=== PATIENT | female | born 1975 | race Caucasian/White ===

== ENCOUNTER 2020-03-31 19:22 | Inpatient (IN) | payer OTHER ==
[~2020-03-31] VITALS: Ht 172.7 cm; Wt 96.0 kg
[2020-03-31] MEDS: LACTATED RINGERS 1,000 ML IV SCH (00:50)
--- NOTE | 2020-03-31 19:42 | NUR ---
Assumed care of patient. C/O ABD pain and N/V/D x 2 weeks, worse today. Will continue to monitor.
[2020-03-31] MEDS ORDERED: ONDANSETRON 2MG/ML, 2ML ONE ×2 (20:11→23:26)
[2020-03-31] MEDS ORDERED: MORPHINE SULFATE 4 MG/ML, 1ML ONE ×3 (20:11→23:26)
--- NOTE | 2020-03-31 20:26 | NUR ---
CT PENDING BETA.
[2020-03-31] MEDS ORDERED: SODIUM CHLORIDE 0.9% 1,000ML IVBOLUS ONE (20:30)
[2020-03-31] MEDS: MORPHINE SULFATE 4 MG/ML, 1ML IVPush PRN ×2 (20:30→22:00)
[2020-03-31] MEDS ORDERED: ONDANSETRON 2MG/ML, 2ML IVPush ONE (20:30)
[2020-03-31 20:34] LABS: BASOPHILS # (AUTO) 0.08 x10^3/uL (0-0.1); BASOPHILS % (AUTO) 1 % (0-1); EOSINOPHILS % (AUTO) 1 % (1-7); LYMPHOCYTES % (AUTO) 21 % (22-44); MD NO; MEAN CORPUSCULAR HEMOGLOBIN 29.3 pg (27.0-34.8); MEAN CORPUSCULAR HGB CONC 33.6 g/dL (32.4-35.8); MEAN PLATELET VOLUME 7.2 fL (7.4-10.4); MONOCYTES % (AUTO) 5 % (2-9); NEUTROPHILS # (AUTO) 10.19 x10^3/uL (1.8-6.8); NEUTROPHILS % (AUTO) 72 % (42-75); PLATELET COUNT 271 x10^3/uL (130-400); RED BLOOD COUNT 4.76 x10^6/uL (3.82-5.3); RED CELL DISTRIBUTION WIDTH 13.3 % (9.6-15.2)
[2020-03-31 20:41] LABS: ALANINE AMINOTRANSFERASE 17 U/L (12-78); ALBUMIN 4.1 g/dL (3.4-5.0); ANION GAP 6 mmol/L (5-15); CALCIUM 8.4 mg/dL (8.5-10.1); CHLORIDE 110 mmol/L (98-107); CREATININE 0.88 mg/dL (0.55-1.02)
[2020-03-31 20:45] LABS: ALKALINE PHOSPHATASE 65 U/L (45-117); BILIRUBIN,TOTAL 0.5 mg/dL (0.2-1.0); TOTAL PROTEIN 7.4 g/dL (6.4-8.2)
[2020-03-31 20:50] LABS: MICROSCOPIC NOT IND
--- NOTE | 2020-03-31 21:15 | NUR ---
Pt to CT
--- NOTE | 2020-03-31 21:27 | NUR ---
Pt back from CT
[2020-03-31] MEDS ORDERED: OMNIPAQUE 350 MG/ML, 100ML BOTTLE ONE (21:32)
[2020-03-31] MEDS ORDERED: METOCLOPRAMIDE 5 MG/ML, 2ML ONE (21:56)
[2020-03-31] MEDS ORDERED: METOCLOPRAMIDE 5 MG/ML, 2ML IVPush ONE (22:00)
[2020-03-31] MEDS ORDERED: SODIUM CHLORIDE 0.9% 1,000 ML IV ONE (22:11)
[2020-03-31] MEDS ORDERED: ONDANSETRON 2MG/ML, 2ML IVPush PRN (22:30)
[2020-03-31] MEDS ORDERED: MELATONIN 5 MG TABLET PO PRN (22:30)
[2020-03-31] MEDS ORDERED: MORPHINE SULFATE 4 MG/ML, 1ML IVPush PRN (22:30)
[2020-03-31] MEDS ORDERED: PROMETHAZINE 25 MG/ML, 1ML IM PRN (22:30)
[2020-03-31] MEDS ORDERED: POLYETHYLENE GLYCOL 17 GM PACKET PO PRN (22:30)
[2020-03-31] MEDS ORDERED: HYDROmorphone 2 MG/ML, 1ML IVPush PRN (22:30)
[2020-03-31] MEDS ORDERED: METOCLOPRAMIDE 5 MG/ML, 2ML IVPush PRN (22:30)
[2020-03-31] MEDS ORDERED: BISACODYL 10 MG SUPP PR PRN (22:30)
--- NOTE | 2020-03-31 23:45 | NUR ---
REPORT GIVEN TO SANCHO SHARIF TO ASSUME CARE UPON TRANSFER TO [facility]
--- NOTE | 2020-03-31 23:46 | NUR ---
PT STATES SHE DOES NOT TAKE ANY MEDICAITONS AT HOME
[2020-04-01 00:03] VITALS: BP 112/74
[2020-04-01] MEDS: ENOXAPARIN 40 MG/0.4 ML SQ SCH ×2 (00:35→22:30)
[2020-04-01] MEDS: MORPHINE SULFATE 4 MG/ML, 1ML IVPush PRN ×6 (01:27→21:04)
[2020-04-01 05:26] LABS: MEAN CORPUSCULAR HEMOGLOBIN 29.4 pg (27.0-34.8); MEAN PLATELET VOLUME 7.2 fL (7.4-10.4); PLATELET COUNT 267 x10^3/uL (130-400); RED BLOOD COUNT 4.89 x10^6/uL (3.82-5.3); RED CELL DISTRIBUTION WIDTH 13.4 % (9.6-15.2)
[2020-04-01 05:28] LABS: ANION GAP 4 mmol/L (5-15); CALCIUM 8.9 mg/dL (8.5-10.1); CHLORIDE 110 mmol/L (98-107); CREATININE 0.74 mg/dL (0.55-1.02)
[2020-04-01 06:15] LABS: BASOPHILS # (AUTO) 0.03 x10^3/uL (0-0.1); BASOPHILS % (AUTO) 0 % (0-1); EOSINOPHILS % (AUTO) 0 % (1-7); LYMPHOCYTES # (AUTO) 0.85 x10^3/uL (1-3.4); LYMPHOCYTES % (AUTO) 4 % (22-44); MD SCAN; MONOCYTES # (AUTO) 0.76 x10^3/uL (0.2-0.8); MONOCYTES % (AUTO) 4 % (2-9); NEUTROPHILS # (AUTO) 18.39 x10^3/uL (1.8-6.8); NEUTROPHILS % (AUTO) 92 % (42-75)
[2020-04-01 06:34] VITALS: BP 162/104
[2020-04-01] MEDS: FAMOTIDINE 20 MG/2 ML IVPush SCH ×2 (08:52→21:04)
[2020-04-01] MEDS: ONDANSETRON 2MG/ML, 2ML IVPush PRN (08:52)
[2020-04-01] MEDS ORDERED: SENNA/DOCUSATE TABLET PO SCH (09:00)
[2020-04-01] MEDS: LACTATED RINGERS 1,000 ML IV SCH (12:34)
[2020-04-01 15:17] VITALS: BP 135/83
[2020-04-01 19:03] VITALS: BP 126/93
[2020-04-01] MEDS ORDERED: LACTATED RINGERS 1,000 ML IV SCH (22:30)
[2020-04-02] MEDS: MORPHINE SULFATE 4 MG/ML, 1ML IVPush PRN ×5 (00:02→19:42)
[2020-04-02 01:47] VITALS: BP 83/75
[2020-04-02] MEDS ORDERED: SODIUM CHLORIDE 0.9% 1,000ML IVBOLUS ONE ×2 (03:00→04:00)
[2020-04-02] MEDS ORDERED: LACTATED RINGERS 1,000 ML IV SCH (03:30)
[2020-04-02 03:41] VITALS: BP 120/83
[2020-04-02 03:41] LABS: ANION GAP 11 mmol/L (5-15); CALCIUM 8.4 mg/dL (8.5-10.1); CHLORIDE 107 mmol/L (98-107); CREATININE 1.65 mg/dL (0.55-1.02)
[2020-04-02 03:50] LABS: MEAN CORPUSCULAR HEMOGLOBIN 29.1 pg (27.0-34.8); MEAN PLATELET VOLUME 7.4 fL (7.4-10.4); PLATELET COUNT 243 x10^3/uL (130-400); RED CELL DISTRIBUTION WIDTH 13.6 % (9.6-15.2)
[2020-04-02] MEDS: PIPERACILLIN/TAZO/PMX 2.25GM 50 ML IV SCH ×2 (04:04→12:51)
[2020-04-02 04:31] LABS: MD YES
[2020-04-02 05:43] LABS: BAND#(MANUAL) 3.54 x10^3/uL; BANDS%(MANUAL) 27 % (0-7); LYMPH#(MANUAL) 2.23 x10^3/uL (1-3.4); LYMPHS% (MANUAL) 17 % (22-44); METAMYELOCYTES# (MANUAL) 0.39 x10^3/uL (0-0); METAMYELOCYTES% (MANUAL) 3 % (0-1); MONOS#(MANUAL) 1.18 x10^3/uL (0.3-2.7); MONOS% (MANUAL) 9 % (2-9); REACTIVE LYMPHS # (MANUAL) 0.13 x10^3/uL (0-0); REACTIVE LYMPHS % (MANUAL) 1 % (0-0); SEG#(MANUAL) 5.63 x10^3/uL (1.8-6.8); SEGS% (MANUAL) 43 % (42-75)
[2020-04-02 05:45] LABS: <PLATELET ESTIMATE> ADEQUATE; <PLT MORPHOLOGY> NORMAL PLT MORPH; <RBC MORPHOLOGY> NORMAL
[2020-04-02 05:46] LABS: PMNS WITH VACUOLES 1+
[2020-04-02 05:47] LABS: TOXIC GRAN 1+
[2020-04-02 07:04] VITALS: BP 114/83
[2020-04-02] MEDS ORDERED: ALBUMIN HUMAN 25% 100 ML IV ONE (09:00)
[2020-04-02] MEDS ORDERED: SODIUM CHLORIDE 0.9%, 500ML IVBOLUS ONE (09:00)
[2020-04-02] MEDS: ONDANSETRON 2MG/ML, 2ML IVPush PRN ×2 (09:18→16:04)
[2020-04-02] MEDS: PANTOPRAZOLE 40 MG IV IVPush SCH ×2 (10:42→22:13)
[2020-04-02] MEDS: D5%-0.9% NACL 1,000 ML IV SCH ×2 (10:43→18:14)
[2020-04-02 14:08] VITALS: BP 119/86
[2020-04-02 14:28] LABS: ANION GAP 8 mmol/L (5-15); CALCIUM 8.2 mg/dL (8.5-10.1); CHLORIDE 112 mmol/L (98-107); CREATININE 0.92 mg/dL (0.55-1.02)
[2020-04-02] MEDS: PIPERACILLIN/TAZO/PMX 3.375GM 50 ML IV SCH (19:47)
[2020-04-02 20:27] VITALS: BP 99/69
[2020-04-02] MEDS: ENOXAPARIN 40 MG/0.4 ML SQ SCH (22:30)
[2020-04-03] MEDS: MORPHINE SULFATE 4 MG/ML, 1ML IVPush PRN ×8 (00:03→23:48)
[2020-04-03 01:17] VITALS: BP 130/82
[2020-04-03] MEDS: D5%-0.9% NACL 1,000 ML IV SCH ×3 (02:51→21:34)
[2020-04-03] MEDS: PIPERACILLIN/TAZO/PMX 3.375GM 50 ML IV SCH ×4 (02:51→21:34)
[2020-04-03 05:44] LABS: ANION GAP 6 mmol/L (5-15); CHLORIDE 110 mmol/L (98-107)
[2020-04-03 05:45] LABS: BASOPHILS # (AUTO) 0.02 x10^3/uL (0-0.1); BASOPHILS % (AUTO) 0 % (0-1); EOSINOPHILS # (AUTO) 0.22 x10^3/uL (0-0.4); EOSINOPHILS % (AUTO) 4 % (1-7); LYMPHOCYTES % (AUTO) 18 % (22-44); MD NO; MEAN CORPUSCULAR HEMOGLOBIN 29.3 pg (27.0-34.8); MEAN CORPUSCULAR HGB CONC 33.7 g/dL (32.4-35.8); MEAN PLATELET VOLUME 7.7 fL (7.4-10.4); MONOCYTES # (AUTO) 0.79 x10^3/uL (0.2-0.8); MONOCYTES % (AUTO) 14 % (2-9); NEUTROPHILS # (AUTO) 3.55 x10^3/uL (1.8-6.8); NEUTROPHILS % (AUTO) 64 % (42-75); PLATELET COUNT 199 x10^3/uL (130-400); RED CELL DISTRIBUTION WIDTH 13.8 % (9.6-15.2)
[2020-04-03 05:47] LABS: CREATININE 0.66 mg/dL (0.55-1.02)
[2020-04-03] MEDS: PANTOPRAZOLE 40 MG IV IVPush SCH ×2 (08:21→21:40)
[2020-04-03 09:10] VITALS: BP 112/79
[2020-04-03] MEDS: ONDANSETRON 2MG/ML, 2ML IVPush PRN ×2 (11:09→17:24)
[2020-04-03 15:00] VITALS: BP 113/70
[2020-04-03 16:37] LABS: MEAN CORPUSCULAR HEMOGLOBIN 29.9 pg (27.0-34.8); MEAN CORPUSCULAR HGB CONC 34.3 g/dL (32.4-35.8); RED BLOOD COUNT 4.43 x10^6/uL (3.82-5.3); RED CELL DISTRIBUTION WIDTH 13.5 % (9.6-15.2)
[2020-04-03 16:38] LABS: BASOPHILS # (AUTO) 0.02 x10^3/uL (0-0.1); BASOPHILS % (AUTO) 0 % (0-1); EOSINOPHILS % (AUTO) 3 % (1-7); LYMPHOCYTES # (AUTO) 1.02 x10^3/uL (1-3.4); LYMPHOCYTES % (AUTO) 14 % (22-44); MD NO; MEAN PLATELET VOLUME 7.6 fL (7.4-10.4); MONOCYTES # (AUTO) 0.67 x10^3/uL (0.2-0.8); MONOCYTES % (AUTO) 9 % (2-9); NEUTROPHILS # (AUTO) 5.42 x10^3/uL (1.8-6.8); NEUTROPHILS % (AUTO) 74 % (42-75); PLATELET COUNT 195 x10^3/uL (130-400)
[2020-04-03] MEDS ORDERED: FENTANYL PF 250 MCG/5ML ONE (18:02)
[2020-04-03] MEDS ORDERED: MIDAZOLAM 1 MG/ML, 2ML ONE (18:02)
[2020-04-03] MEDS ORDERED: LIDOCAINE-MPF 2% ,5ML ONE (18:50)
[2020-04-03] MEDS ORDERED: SUGAMMADEX 200 MG/2 ML IVPush ONE (18:50)
[2020-04-03] MEDS ORDERED: MEPERIDINE/PF 25MG/0.5ML IVPush PRN (19:30)
[2020-04-03] MEDS ORDERED: LABETALOL 5MG/ML, 20ML IV PRN (19:30)
[2020-04-03] MEDS ORDERED: FENTANYL PF 100 MCG/2ML IV PRN (19:30)
[2020-04-03] MEDS ORDERED: morphine SULFATE 10 MG/ML, 1ML IVPush PRN (19:30)
[2020-04-03] MEDS ORDERED: ALBUTEROL SULFATE 2.5 MG/3 ML NPPB PRN (19:30)
[2020-04-03] MEDS ORDERED: hydrALAzine 20 MG/ML, 1ML IV PRN (19:30)
[2020-04-03] MEDS ORDERED: PROMETHAZINE 25 MG/ML, 1ML IVPush PRN (19:30)
[2020-04-03] MEDS ORDERED: LORazepam 2 MG/ML, 1ML IVPush PRN (19:30)
[2020-04-03] MEDS ORDERED: CEFAZOLIN 1,000 MG ONE (19:38)
[2020-04-03] MEDS ORDERED: GLYCOPYRROLATE 0.2MG/1ML, 5ML ONE (19:38)
[2020-04-03] MEDS ORDERED: PROPOFOL 10 MG/ML, 20ML ONE (19:38)
[2020-04-03] MEDS ORDERED: DEXAMETHASONE 4 MG/ML, 1ML ONE (19:38)
[2020-04-03] MEDS ORDERED: NEOSTIGMINE 1 MG/ML, 10ML ONE (19:38)
[2020-04-03] MEDS ORDERED: SUCCINYLCHOLINE 20 MG/ML, 10ML ONE (19:38)
[2020-04-03] MEDS ORDERED: ONDANSETRON 2MG/ML, 2ML ONE (19:38)
[2020-04-03] MEDS ORDERED: ROCURONIUM 10MG/ML,5ML ONE (19:38)
[2020-04-03] MEDS ORDERED: FENTANYL PF 100 MCG/2ML ONE (20:26)
[2020-04-03] MEDS ORDERED: MEPERIDINE/PF 25MG/ML,1ML ONE (20:26)
[2020-04-03] MEDS: ENOXAPARIN 40 MG/0.4 ML SQ SCH (22:30)
[2020-04-03] MEDS: GABAPENTIN 300 MG CAPSULE PO SCH (22:55)
[2020-04-03] MEDS: ACETAMINOPHEN 500 MG TABLET PO SCH (22:55)
[2020-04-04] MEDS: MORPHINE SULFATE 4 MG/ML, 1ML IVPush PRN ×3 (02:55→19:53)
[2020-04-04] MEDS: PIPERACILLIN/TAZO/PMX 3.375GM 50 ML IV SCH ×4 (02:55→19:53)
[2020-04-04] MEDS: D5%-0.9% NACL 1,000 ML IV SCH ×3 (05:40→19:53)
[2020-04-04] MEDS: ENOXAPARIN 40 MG/0.4 ML SQ SCH (05:40)
[2020-04-04] MEDS: ACETAMINOPHEN 500 MG TABLET PO SCH ×4 (05:40→22:36)
[2020-04-04 05:41] VITALS: BP 126/80
[2020-04-04 05:44] LABS: ANION GAP 4 mmol/L (5-15); CALCIUM 7.9 mg/dL (8.5-10.1); CHLORIDE 114 mmol/L (98-107); CREATININE 0.64 mg/dL (0.55-1.02)
[2020-04-04 07:25] VITALS: BP 125/89
[2020-04-04] MEDS: PANTOPRAZOLE 40 MG IV IVPush SCH ×2 (08:39→22:36)
[2020-04-04] MEDS: GABAPENTIN 300 MG CAPSULE PO SCH ×3 (08:40→22:37)
[2020-04-04 13:30] VITALS: BP 116/82
[2020-04-04 19:12] VITALS: BP 130/88
[2020-04-05] MEDS: PIPERACILLIN/TAZO/PMX 3.375GM 50 ML IV SCH ×4 (02:02→21:44)
[2020-04-05 02:24] VITALS: BP 138/90
[2020-04-05] MEDS: ACETAMINOPHEN 500 MG TABLET PO SCH ×4 (05:05→23:03)
[2020-04-05] MEDS: D5%-0.9% NACL 1,000 ML IV SCH ×3 (05:06→21:44)
[2020-04-05 05:20] LABS: BASOPHILS # (AUTO) 0.01 x10^3/uL (0-0.1); BASOPHILS % (AUTO) 0 % (0-1); EOSINOPHILS # (AUTO) 0.37 x10^3/uL (0-0.4); EOSINOPHILS % (AUTO) 5 % (1-7); LYMPHOCYTES # (AUTO) 2.15 x10^3/uL (1-3.4); LYMPHOCYTES % (AUTO) 26 % (22-44); MD NO; MEAN CORPUSCULAR HEMOGLOBIN 29.4 pg (27.0-34.8); MEAN CORPUSCULAR HGB CONC 33.7 g/dL (32.4-35.8); MEAN PLATELET VOLUME 7.2 fL (7.4-10.4); MONOCYTES # (AUTO) 0.73 x10^3/uL (0.2-0.8); MONOCYTES % (AUTO) 9 % (2-9); NEUTROPHILS # (AUTO) 4.97 x10^3/uL (1.8-6.8); NEUTROPHILS % (AUTO) 60 % (42-75); PLATELET COUNT 221 x10^3/uL (130-400); RED BLOOD COUNT 4.09 x10^6/uL (3.82-5.3); RED CELL DISTRIBUTION WIDTH 13.6 % (9.6-15.2)
[2020-04-05 05:30] LABS: ANION GAP 6 mmol/L (5-15); CALCIUM 7.6 mg/dL (8.5-10.1); CHLORIDE 113 mmol/L (98-107); CREATININE 0.48 mg/dL (0.55-1.02)
[2020-04-05] MEDS: ENOXAPARIN 40 MG/0.4 ML SQ SCH (06:32)
[2020-04-05] MEDS: PANTOPRAZOLE 40 MG IV IVPush SCH ×2 (08:17→21:44)
[2020-04-05] MEDS: GABAPENTIN 300 MG CAPSULE PO SCH ×3 (08:17→21:43)
[2020-04-05 08:30] VITALS: BP 134/95
[2020-04-05 14:10] VITALS: BP 130/89
[2020-04-05 19:33] VITALS: BP 134/72
[2020-04-06 02:41] VITALS: BP 92/58
[2020-04-06] MEDS: PIPERACILLIN/TAZO/PMX 3.375GM 50 ML IV SCH ×4 (04:10→23:08)
[2020-04-06 05:01] LABS: BASOPHILS # (AUTO) 0.03 x10^3/uL (0-0.1); BASOPHILS % (AUTO) 1 % (0-1); EOSINOPHILS # (AUTO) 0.33 x10^3/uL (0-0.4); EOSINOPHILS % (AUTO) 4 % (1-7); LYMPHOCYTES # (AUTO) 2.22 x10^3/uL (1-3.4); LYMPHOCYTES % (AUTO) 29 % (22-44); MD NO; MEAN CORPUSCULAR HEMOGLOBIN 29.3 pg (27.0-34.8); MEAN CORPUSCULAR HGB CONC 33.7 g/dL (32.4-35.8); MEAN PLATELET VOLUME 6.9 fL (7.4-10.4); MONOCYTES # (AUTO) 0.87 x10^3/uL (0.2-0.8); MONOCYTES % (AUTO) 12 % (2-9); NEUTROPHILS # (AUTO) 4.08 x10^3/uL (1.8-6.8); NEUTROPHILS % (AUTO) 54 % (42-75); PLATELET COUNT 207 x10^3/uL (130-400); RED BLOOD COUNT 3.83 x10^6/uL (3.82-5.3); RED CELL DISTRIBUTION WIDTH 13.1 % (9.6-15.2)
[2020-04-06 05:09] LABS: ANION GAP 7 mmol/L (5-15); CALCIUM 7.6 mg/dL (8.5-10.1); CHLORIDE 113 mmol/L (98-107); CREATININE 0.54 mg/dL (0.55-1.02)
[2020-04-06] MEDS: ENOXAPARIN 40 MG/0.4 ML SQ SCH (05:37)
[2020-04-06] MEDS: ACETAMINOPHEN 500 MG TABLET PO SCH ×4 (05:37→23:08)
[2020-04-06 07:24] VITALS: BP 109/74
[2020-04-06] MEDS: PANTOPRAZOLE 40 MG IV IVPush SCH ×2 (08:38→20:50)
[2020-04-06] MEDS: GABAPENTIN 300 MG CAPSULE PO SCH ×3 (08:38→20:50)
[2020-04-06] MEDS: D5%-0.9% NACL 1,000 ML IV SCH (10:56)
[2020-04-06] MEDS ORDERED: POTASSIUM CHLORIDE 40 MEQ in SODIUM CHLORIDE 0.9% 500 ML IV ONE (11:00)
[2020-04-06 12:58] VITALS: BP 130/85
[2020-04-06 19:46] VITALS: BP 114/70
[2020-04-07 01:20] VITALS: BP 113/73
[2020-04-07] MEDS: MELATONIN 3 MG TABLET PO PRN ×2 (01:22→23:14)
[2020-04-07] MEDS: D5%-0.9% NACL 1,000 ML IV SCH ×3 (03:10→17:34)
[2020-04-07] MEDS: PIPERACILLIN/TAZO/PMX 3.375GM 50 ML IV SCH ×4 (05:29→23:14)
[2020-04-07] MEDS: ACETAMINOPHEN 500 MG TABLET PO SCH ×4 (05:29→23:14)
[2020-04-07] MEDS: ENOXAPARIN 40 MG/0.4 ML SQ SCH (05:29)
[2020-04-07 08:32] VITALS: BP 120/77
[2020-04-07] MEDS: PANTOPRAZOLE 40 MG IV IVPush SCH ×2 (08:49→20:50)
[2020-04-07] MEDS: GABAPENTIN 300 MG CAPSULE PO SCH ×3 (08:49→20:50)
[2020-04-07 10:04] LABS: BASOPHILS # (AUTO) 0.06 x10^3/uL (0-0.1); BASOPHILS % (AUTO) 1 % (0-1); EOSINOPHILS # (AUTO) 0.34 x10^3/uL (0-0.4); EOSINOPHILS % (AUTO) 4 % (1-7); LYMPHOCYTES # (AUTO) 2.16 x10^3/uL (1-3.4); LYMPHOCYTES % (AUTO) 28 % (22-44); MD NO; MEAN CORPUSCULAR HEMOGLOBIN 28.9 pg (27.0-34.8); MEAN CORPUSCULAR HGB CONC 32.8 g/dL (32.4-35.8); MEAN PLATELET VOLUME 6.7 fL (7.4-10.4); MONOCYTES % (AUTO) 9 % (2-9); NEUTROPHILS # (AUTO) 4.55 x10^3/uL (1.8-6.8); NEUTROPHILS % (AUTO) 58 % (42-75); PLATELET COUNT 251 x10^3/uL (130-400); RED BLOOD COUNT 3.96 x10^6/uL (3.82-5.3); RED CELL DISTRIBUTION WIDTH 13.3 % (9.6-15.2)
[2020-04-07 10:13] LABS: ANION GAP 5 mmol/L (5-15); CALCIUM 8.2 mg/dL (8.5-10.1); CHLORIDE 115 mmol/L (98-107); CREATININE 0.49 mg/dL (0.55-1.02)
[2020-04-07 13:08] VITALS: BP 125/84
[2020-04-07 20:35] VITALS: BP 113/78
[2020-04-08 02:41] VITALS: BP 115/71
[2020-04-08] MEDS: D5%-0.9% NACL 1,000 ML IV SCH ×2 (02:47→10:33)
[2020-04-08 05:24] LABS: BASOPHILS # (AUTO) 0.03 x10^3/uL (0-0.1); BASOPHILS % (AUTO) 0 % (0-1); EOSINOPHILS # (AUTO) 0.37 x10^3/uL (0-0.4); EOSINOPHILS % (AUTO) 5 % (1-7); LYMPHOCYTES # (AUTO) 2.56 x10^3/uL (1-3.4); LYMPHOCYTES % (AUTO) 32 % (22-44); MD NO; MEAN CORPUSCULAR HEMOGLOBIN 29.3 pg (27.0-34.8); MEAN CORPUSCULAR HGB CONC 33.4 g/dL (32.4-35.8); MEAN PLATELET VOLUME 7.1 fL (7.4-10.4); MONOCYTES # (AUTO) 0.68 x10^3/uL (0.2-0.8); MONOCYTES % (AUTO) 8 % (2-9); NEUTROPHILS # (AUTO) 4.43 x10^3/uL (1.8-6.8); NEUTROPHILS % (AUTO) 55 % (42-75); PLATELET COUNT 239 x10^3/uL (130-400); RED BLOOD COUNT 3.76 x10^6/uL (3.82-5.3); RED CELL DISTRIBUTION WIDTH 13.3 % (9.6-15.2)
[2020-04-08] MEDS: ACETAMINOPHEN 500 MG TABLET PO SCH ×3 (05:30→16:38)
[2020-04-08] MEDS: PIPERACILLIN/TAZO/PMX 3.375GM 50 ML IV SCH ×3 (05:30→17:29)
[2020-04-08] MEDS: ENOXAPARIN 40 MG/0.4 ML SQ SCH (05:30)
[2020-04-08 05:33] LABS: ANION GAP 5 mmol/L (5-15); CALCIUM 7.6 mg/dL (8.5-10.1); CHLORIDE 117 mmol/L (98-107); CREATININE 0.43 mg/dL (0.55-1.02)
[2020-04-08 07:45] VITALS: BP 132/82
[2020-04-08] MEDS: GABAPENTIN 300 MG CAPSULE PO SCH ×2 (08:23→15:33)
[2020-04-08] MEDS: PANTOPRAZOLE 40 MG IV IVPush SCH (08:59)
[2020-04-08] MEDS ORDERED: POTASSIUM CHLORIDE 40 MEQ in SODIUM CHLORIDE 0.9% 500 ML IV ONE (10:00)
[2020-04-08 13:50] VITALS: BP 130/84
[2020-04-08] MEDS ORDERED: ACET500T64 PO (16:16)
[2020-04-08] MEDS ORDERED: POTASSIUM CHLORIDE 20 MEQ TAB.ER.PRT PO ONE (16:30)
[2020-04-08] MEDS ORDERED: MAGNESIUM SULFATE PMX 2GM/50ML 50 ML IV ONE (16:30)
== END 2020-04-08 19:43 | disposition home or self-care (01) | DRG 335 ==
LOC: MERGE 22:30 → ED 22:30 → OBSVTOIN 22:31 → EDIP 22:31 → INTOOBSV 22:31 → 3N 23:55 → 4NE 04-03 21:10
PROVIDERS: ADMIT Hospitalist; ATTEND Internal Medicine
PROC: 0DN80ZZ Release Small Intestine, Open Approach (ICD-10-PCS; 2020-04-03)
PROC: 0D9670Z Drainage of Stomach with Drainage Device, Via Natural or Artificial Opening (ICD-10-PCS; 2020-04-03)
PROC: 0WJG0ZZ Inspection of Peritoneal Cavity, Open Approach (ICD-10-PCS; principal; 2020-04-03 12:00)
DX: K56.51 Intestinal adhesions [bands], with partial obstruction (principal); N17.0 Acute kidney failure with tubular necrosis; E87.2 Acidosis; E87.6 Hypokalemia; D72.825 Bandemia; E83.42 Hypomagnesemia; Z20.828 Contact with and (suspected) exposure to other viral communicable diseases; E66.9 Obesity, unspecified; D72.829 Elevated white blood cell count, unspecified; Z68.31 Body mass index [BMI] 31.0-31.9, adult; Z90.710 Acquired absence of both cervix and uterus; Z90.49 Acquired absence of other specified parts of digestive tract; Z88.8 Allergy status to other drugs, medicaments and biological substances; N14.1 Nephropathy induced by other drugs, medicaments and biological substances; T50.8X5A Adverse effect of diagnostic agents, initial encounter; Y92.239 Unspecified place in hospital as the place of occurrence of the external cause; K59.00 Constipation, unspecified
CPT/HCPCS: 36415; 74018; 74021; 74250; 96374; 96375; 96376; 99285; J3490; J7042; 74177; 80048; 80053; 81003; 83605; 83690; 83735; 84100; 84132; 84703; 85025; 87635; G0378; J0690; J1100; J1170; J1650; J2175; J2250; J2405; J2543; J2550; J2704; J2710; J3010; J3480; P9047; Q9967; C1765; C9113; J0330; J2270; J2765; J3475; J7030; J7040; J7120

== ENCOUNTER 2020-04-12 20:46 | Emergency (ER) | payer OTHER ==
[~2020-04-12] VITALS: Ht 172.7 cm; Wt 93.0 kg
[~2020-04-12 20:46] MED LIST: ACET500T64 PO
[2020-04-12 20:47] VITALS: BP 151/108
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
--- NOTE | 2020-04-12 21:28 | NUR ---
REPLACED LAST 4 STERI STRIPS. SENT PT HOME WITH SOME EXTRA STRIPS AND EDUCATED PT ON HOW TO USE. UP FOR RECHECK AT THIS TIME.
== END 2020-04-12 21:44 | disposition home or self-care (01) ==
LOC: ED 21:35
DX: S31.119D Laceration without foreign body of abdominal wall, unspecified quadrant without penetration into peritoneal cavity, subsequent encounter (principal); X58.XXXD Exposure to other specified factors, subsequent encounter
CPT/HCPCS: 99281

== ENCOUNTER 2021-02-09 17:15 | Emergency (ER) | payer OTHER ==
[~2021-02-09] VITALS: Ht 172.7 cm; Wt 98.0 kg
[2021-02-09] MEDS ORDERED: SODIUM CHLORIDE FLUSH 10ML SYR IVF ONE (17:30)
[2021-02-09 17:53] LABS: BASOPHILS % (AUTO) 1 % (0-1); EOSINOPHILS % (AUTO) 2 % (1-7); LYMPHOCYTES % (AUTO) 38 % (22-44); MEAN CORPUSCULAR HEMOGLOBIN 29.4 pg (27.0-34.8); MEAN CORPUSCULAR HGB CONC 33.9 g/dL (32.4-35.8); MEAN PLATELET VOLUME 6.9 fL (7.4-10.4); MONOCYTES % (AUTO) 6 % (2-9); NEUTROPHILS % (AUTO) 53 % (42-75); PLATELET COUNT 311 x10^3/uL (130-400); RED BLOOD COUNT 4.56 x10^6/uL (3.82-5.3); RED CELL DISTRIBUTION WIDTH 13.5 % (9.6-15.2)
[2021-02-09 18:05] LABS: ALBUMIN 3.9 g/dL (3.4-5.0); ANION GAP 4 mmol/L (5-15); CALCIUM 8.8 mg/dL (8.5-10.1); CHLORIDE 109 mmol/L (98-107)
[2021-02-09 18:12] LABS: ALANINE AMINOTRANSFERASE 18 U/L (12-78); ALKALINE PHOSPHATASE 65 U/L (45-117); BILIRUBIN,TOTAL 0.4 mg/dL (0.2-1.0); CREATININE 0.71 mg/dL (0.55-1.02); TOTAL PROTEIN 7.1 g/dL (6.4-8.2)
[2021-02-09 18:15] LABS: MD NO
[2021-02-09] MEDS ORDERED: DICYCLOMINE 10 MG/ML, 2ML ONE (18:50)
[2021-02-09] MEDS ORDERED: DICYCLOMINE 10 MG/ML, 2ML IM ONE (19:00)
[2021-02-09] MEDS ORDERED: SODIUM CHLORIDE 0.9% 1,000ML IVBOLUS ONE (19:00)
[2021-02-09 19:12] LABS: MICROSCOPIC NOT IND
[2021-02-09 20:16] VITALS: BP 116/76
== END 2021-02-09 20:29 | disposition home or self-care (01) ==
LOC: ED 18:30
DX: R10.84 Generalized abdominal pain (principal); R19.7 Diarrhea, unspecified; R11.0 Nausea; Z90.49 Acquired absence of other specified parts of digestive tract
CPT/HCPCS: 36415; 74021; 80053; 81003; 83690; 84703; 85025; 96361; 96374; 99284; J0500; J7030